=== PATIENT | male | born 1945 | race African-American/Black ===

== ENCOUNTER 2020-04-18 20:28 | Inpatient (IN) | payer MEDICARE ==
[2020-04-18] MEDS ORDERED: Diltiazem 125 MG/25 ML ONE (22:02)
[2020-04-18 22:36] LABS: #Eosinphils 0.1 thou/uL (0.0-0.7); #Lymphocytes 0.9 thou/uL (1.20-3.40); #Monocytes 0.6 thou/uL (0.11-0.59); #Neutrophils 4.7 thou/uL (1.40-6.50); %Basophils 0.4 % (0.0-1.0); %Eosinophils 1.3 % (0.0-10.0); %Lymphocytes 14.2 % (21.0-51.0); %Monocytes 9.9 % (0.0-10.0); %Neutrophils 74.2 % (42.0-75.0); Mean Corpuscular HGB CONC 33.4 g/dL (32.0-36.0); Mean Corpuscular Hemoglobin 32.5 pg (27.0-31.0); Mean Corpuscular Volume 97.2 fL (78.0-98.0); Mean Platelet Volume 8.7 fL (7.4-10.4); Platelet Count 150 thou/uL (130-400); Red Blood Cell (RBC) Count 3.09 mill/uL (4.70-6.10); White Blood Cell (WBC) Count 6.3 thou/uL (4.8-10.8)
[2020-04-18 22:57] LABS: ALT (SGPT) 13 U/L (8-55); AST (SGOT) 16 U/L (5-34); Albumin 3.4 g/dL (3.4-4.8); Alkaline Phosphatase 74 U/L (40-110); Anion Gap 12 mmol/L (10-20); BUN (Urea Nitrogen) 12 mg/dL (8.4-25.7); Bilirubin, Total 0.5 mg/dL (0.2-1.2); CK (CPK) 119 U/L (30-200); Calc. Creatinine Clearance 0 mL/min (70-130); Calcium 8.3 mg/dL (7.8-10.44); Carbon Dioxide 23 mmol/L (23-31); Chloride 110 mmol/L (98-107); Globulin 2.6 g/dL (2.4-3.5); Glucose 122 mg/dL (83-110); Potassium 3.4 mmol/L (3.5-5.1); Sodium 142 mmol/L (136-145)
[2020-04-18 23:25] LABS: CKMB 3.2 ng/mL (0-6.6)
[2020-04-19] MEDS ORDERED: Enoxaparin Sodium 40 MG/0.4 ML SYRINGE ONE ×2 (01:07→08:56)
[2020-04-19] MEDS ORDERED: Aspirin 325 MG TAB ONE (01:07)
[2020-04-19] MEDS ORDERED: Enoxaparin Sodium 100 MG/ML SYRINGE ONE ×2 (01:07→08:56)
[2020-04-19] MEDS ORDERED: Furosemide 40 MG/4 ML VIAL ONE (01:07)
[2020-04-19] MEDS ORDERED: HumaLOG 300 UNITS/3 ML VIAL SC PRN ×2 (01:09)
[2020-04-19] MEDS ORDERED: Dextrose 50% Abboject 50 ML SYRINGE SLOW IVP PRN (01:09)
[2020-04-19] MEDS ORDERED: Dextrose 5% in Water 1,000 ML IV PRN (01:09)
[2020-04-19] MEDS ORDERED: Furosemide 40 MG/4 ML VIAL SLOW IVP SCH (01:30)
[2020-04-19 02:03] LABS: Troponin I 0.224 ng/mL (< 0.028)
[2020-04-19 02:56] LABS: INR-International Normal Ratio 1.3; Prothrombin Time 16.1 sec (12.0-14.7)
[2020-04-19 03:16] LABS: Cardiac Risk 3.3 (Less than 4.5)
[2020-04-19 05:05] LABS: Troponin I 0.219 ng/mL (< 0.028)
[2020-04-19] MEDS ORDERED: Aspirin Chewable 81 MG TAB ONE (08:56)
[2020-04-19] MEDS ORDERED: Metoprolol Tartrate 50 MG TAB PO SCH (09:00)
[2020-04-19] MEDS ORDERED: Iopamidol-370 76% 500 ML 1 ML ONE (09:29)
[2020-04-19] MEDS ORDERED: Enoxaparin Sodium 40 MG/0.4 ML SYRINGE SC SCH (11:00)
[2020-04-19] MEDS ORDERED: Enoxaparin Sodium 100 MG/ML SYRINGE SC SCH ×2 (11:00→21:00)
[2020-04-19] MEDS ORDERED: Diltiazem 125 MG/25 ML ONE (11:09)
[2020-04-19] MEDS: Aspirin Chewable 81 MG TAB PO SCH (12:36)
[2020-04-19] MEDS: Pantoprazole 40 MG VIAL IVP SCH ×2 (12:37→20:40)
[2020-04-19 12:47] LABS: Bacteria/HPF None Seen HPF (None Seen); Bilirubin Negative (Negative); Blood, Urine Negative (Negative); Clarity Clear (Clear); Glucose, Urine (Dipstick) Normal (Negative); Ketone, Urine Negative (Negative); Leukocyte 25 Leu/uL (Negative); Nitrite Negative (Negative); Protein, Urine (Dipstick) 10 mg/dL (Neg-Trace); RBC/HPF 0-3 HPF (0-3); Specific Gravity, Urine 1.045 (1.002-1.036); Squamous Epithelial None Seen HPF (0-3); Urobilinogen Normal mg/dL (Less than 2); WBC/HPF 0-3 HPF (0-3); pH, Urine 5.5 (5.0-9.0)
[2020-04-19 16:37] VITALS: BMI 43.2
[2020-04-19] MEDS: Enoxaparin Sodium 40 MG/0.4 ML SYRINGE SC SCH (20:37)
[2020-04-19] MEDS: Enoxaparin Sodium 100 MG/ML SYRINGE SC SCH (20:37)
[2020-04-19] MEDS: Simvastatin 10 MG TAB PO SCH (21:56)
[2020-04-19] MEDS ORDERED: Topiramate 100 MG TAB PO SCH (22:15)
[2020-04-19] MEDS: Metoprolol Tartrate 50 MG TAB PO SCH (22:25)
[2020-04-19] MEDS ORDERED: Topiramate 25 MG TAB PO SCH (22:30)
[2020-04-20] MEDS: Diltiazem 125 MG in Sodium Chloride 0.9% 100 ML IVPB SCH (06:19)
[2020-04-20] MEDS: Metoprolol Tartrate 50 MG TAB PO SCH ×2 (08:15→20:09)
[2020-04-20] MEDS: Enoxaparin Sodium 100 MG/ML SYRINGE SC SCH ×2 (08:16→20:10)
[2020-04-20] MEDS: Aspirin Chewable 81 MG TAB PO SCH (08:16)
[2020-04-20] MEDS: Enoxaparin Sodium 40 MG/0.4 ML SYRINGE SC SCH ×2 (08:16→20:10)
[2020-04-20] MEDS: Topiramate 100 MG TAB PO SCH ×2 (08:16→20:09)
[2020-04-20] MEDS: Pantoprazole 40 MG VIAL IVP SCH ×2 (08:59→20:09)
[2020-04-20] MEDS ORDERED: Topiramate 25 MG TAB PO SCH (09:00)
[2020-04-20 13:55] LABS: Hemoglobin 10.2 g/dL (14.0-18.0)
[2020-04-20] MEDS: Simvastatin 10 MG TAB PO SCH (20:09)
[2020-04-21] MEDS ORDERED: Benzonatate 100 MG CAP PO PRN (00:42)
[2020-04-21] MEDS: Guaifenesin DM 100-10/5 ML UDCUP PO PRN ×2 (00:51→10:26)
[2020-04-21] MEDS: Diltiazem 125 MG in Sodium Chloride 0.9% 100 ML IVPB SCH (03:12)
[2020-04-21 05:02] LABS: #Eosinphils 0.2 thou/uL (0.0-0.7); #Lymphocytes 1.1 thou/uL (1.20-3.40); #Monocytes 0.5 thou/uL (0.11-0.59); #Neutrophils 3.5 thou/uL (1.40-6.50); %Basophils 0.3 % (0.0-1.0); %Eosinophils 3.3 % (0.0-10.0); %Monocytes 8.9 % (0.0-10.0); %Neutrophils 66.5 % (42.0-75.0); Hemoglobin 9.8 g/dL (14.0-18.0); Mean Corpuscular HGB CONC 32.9 g/dL (32.0-36.0); Mean Corpuscular Hemoglobin 32.2 pg (27.0-31.0); Mean Corpuscular Volume 97.7 fL (78.0-98.0); Mean Platelet Volume 8.9 fL (7.4-10.4); Platelet Count 152 thou/uL (130-400); RBC Distribution Width 14.8 % (11.5-14.5); Red Blood Cell (RBC) Count 3.05 mill/uL (4.70-6.10); White Blood Cell (WBC) Count 5.3 thou/uL (4.8-10.8)
[2020-04-21 05:25] LABS: Anion Gap 11 mmol/L (10-20); BUN (Urea Nitrogen) 15 mg/dL (8.4-25.7); Calc. Creatinine Clearance 137 mL/min (70-130); Calcium 7.9 mg/dL (7.8-10.44); Carbon Dioxide 22 mmol/L (23-31); Chloride 110 mmol/L (98-107); Glucose 105 mg/dL (83-110); Potassium 3.1 mmol/L (3.5-5.1); Sodium 140 mmol/L (136-145)
[2020-04-21] MEDS: Enoxaparin Sodium 100 MG/ML SYRINGE SC SCH (08:15)
[2020-04-21] MEDS: Enoxaparin Sodium 40 MG/0.4 ML SYRINGE SC SCH (08:16)
[2020-04-21] MEDS: Pantoprazole 40 MG VIAL IVP SCH ×2 (08:16→22:02)
[2020-04-21] MEDS: Metoprolol Tartrate 50 MG TAB PO SCH ×2 (08:16→22:01)
[2020-04-21] MEDS: Potassium Chloride 20 MEQ TAB PO SCH ×2 (08:16→17:24)
[2020-04-21] MEDS: Aspirin Chewable 81 MG TAB PO SCH (08:17)
[2020-04-21] MEDS: Topiramate 100 MG TAB PO SCH ×2 (08:17→22:01)
[2020-04-21] MEDS: Rivaroxaban 10 MG TAB PO SCH (17:25)
[2020-04-21] MEDS ORDERED: Rivaroxaban 10 MG TAB PO SCH (18:00)
[2020-04-21] MEDS: Simvastatin 10 MG TAB PO SCH (22:01)
[2020-04-22] MEDS: Diltiazem 125 MG in Sodium Chloride 0.9% 100 ML IVPB SCH (03:35)
[2020-04-22] MEDS: Metoprolol Tartrate 50 MG TAB PO SCH ×2 (08:17→21:14)
[2020-04-22] MEDS: Pantoprazole 40 MG VIAL IVP SCH ×2 (08:17→21:14)
[2020-04-22] MEDS: Aspirin Chewable 81 MG TAB PO SCH (08:18)
[2020-04-22] MEDS: Topiramate 100 MG TAB PO SCH ×2 (08:18→21:14)
[2020-04-22] MEDS: Rivaroxaban 10 MG TAB PO SCH (18:11)
[2020-04-22] MEDS: Simvastatin 10 MG TAB PO SCH (21:14)
[2020-04-23] MEDS: Aspirin Chewable 81 MG TAB PO SCH (09:25)
[2020-04-23] MEDS: Topiramate 100 MG TAB PO SCH ×2 (09:25→20:54)
[2020-04-23] MEDS: Metoprolol Tartrate 50 MG TAB PO SCH ×2 (09:26→20:54)
[2020-04-23] MEDS: Pantoprazole 40 MG VIAL IVP SCH ×2 (09:27→21:45)
[2020-04-23 10:03] LABS: Hemoglobin 10.6 g/dL (14.0-18.0)
[2020-04-23] MEDS: Aluminum & Magnesium Hydroxide 60 ML, diphenhydrAMINE 150 MG, Lidocaine 2% Viscous Solu... SSP PRN (13:26)
[2020-04-23] MEDS: Rivaroxaban 10 MG TAB PO SCH (18:46)
[2020-04-23] MEDS: Simvastatin 10 MG TAB PO SCH (20:54)
[2020-04-24] MEDS: Aluminum & Magnesium Hydroxide 60 ML, diphenhydrAMINE 150 MG, Lidocaine 2% Viscous Solu... SSP PRN (03:21)
[2020-04-24] MEDS: Metoprolol Tartrate 50 MG TAB PO SCH (08:53)
[2020-04-24] MEDS: Pantoprazole 40 MG VIAL IVP SCH (08:54)
[2020-04-24] MEDS: Aspirin Chewable 81 MG TAB PO SCH (08:54)
[2020-04-24] MEDS: Topiramate 100 MG TAB PO SCH (08:54)
[2020-04-24 12:47] VITALS: BP 123/83; TEMP 96
== END 2020-04-24 13:56 | DRG 308 ==
LOC: ERS 20:28 → ERHOLD 04-19 00:29 → 2NO 04-19 16:19 → OBSVTOIN 04-21 09:25
PROVIDERS: ADMIT Internal Medicine; ATTEND Internal Medicine
DX: I48.19 Other persistent atrial fibrillation (principal); I26.99 Other pulmonary embolism without acute cor pulmonale; I82.402 Acute embolism and thrombosis of unspecified deep veins of left lower extremity; Z68.41 Body mass index [BMI] 40.0-44.9, adult; Z20.822 Contact with and (suspected) exposure to COVID-19; I10 Essential (primary) hypertension; E78.5 Hyperlipidemia, unspecified; E11.9 Type 2 diabetes mellitus without complications; K21.9 Gastro-esophageal reflux disease without esophagitis; I49.3 Ventricular premature depolarization; E66.9 Obesity, unspecified; K64.4 Residual hemorrhoidal skin tags; D64.9 Anemia, unspecified; Z87.891 Personal history of nicotine dependence; Z79.01 Long term (current) use of anticoagulants; Z79.82 Long term (current) use of aspirin; Z79.899 Other long term (current) drug therapy
CPT/HCPCS: 36415; 36416; 71045; 71275; 80048; 80053; 80061; 81001; 82550; 82553; 82607; 82746; 83735; 83880; 84443; 84484; 85018; 85025; 85520; 85610; 85730; 93005; 93306; 93970; 94640; 94760; 96365; 96366; 96372; 96375; 96376; C9113; G0378; J1650; J1940; J3490; J7620; Q0163; Q9967